=== PATIENT | female | born 1960 | race American Indian/Alaskan Native ===

== ENCOUNTER 2019-09-23 07:10 | Day surgery (SDC) | payer OTHER ==
[~2019-09-23] VITALS: Ht 162.6 cm; Wt 66.7 kg
--- NOTE | 2019-09-23 13:18 | OR ---
[facility] [address], [place] [address] Signed DATE OF OPERATION: 09/23/2019 SURGEON: Armida Rodriguez MD PREOPERATIVE DIAGNOSES: 1. Positive Cologuard test. 2. Family history of colon cancer (sister at 49). POSTOPERATIVE DIAGNOSIS: Polyps x4 including complex polyp at 60 cm. PROCEDURES: 1. Total colonoscopy to cecum with cold morcellation polypectomy x2. 2. Cold snare polypectomy x1. 3. Mucosal lift excision of complex polyp x1. ANESTHESIA: Intravenous sedation, fentanyl 200 mcg, Versed 8 mg. INDICATIONS: This 58-year-old dark-skinned woman is a patient of RASHMI Alarcon. The patient has family history of colon cancer in her sister, who at age 49 of the disease. The patient has no blood per rectum or other abdominal symptoms, but did undergo Cologuard test, which was positive. On that basis, colonoscopy has been recommended. The risks of bleeding, infection, and perforation related to colonoscopy was reviewed with her in detail. She understands and wished to proceed. FINDINGS: The prep was good. Complete colonoscopy was undertaken to the cecum without question. She did exhibit some tolerance to medications and in the future, a propofol infusional technique may be better. In any case, she had four polyps, 3 of them small and 1 of them larger at least 2 cm and sessile at 60 cm. All were excised with a variety of techniques. Most dominantly, the sessile polyp at 60 cm excised with mucosal lift technique using Spot tattoo dye and hemostasis also additionally secured with hemoclip. DESCRIPTION OF PROCEDURE: The patient was brought to the endoscopy suite and placed in lateral decubitus position given intravenous sedation to the point of slurred speech and nystagmus. Full cardiopulmonary monitoring was undertaken. Full COVID protections were in place, though the patient's showed no evidence of COVID infection. Digital rectal examination was Electronically Signed By: ARMIDA RORDIGUEZ MD 09/23/19 1318 PATIENT NAME: PEÑA CALDWELL OPERATIVE REPORT DATE OF : 64 REPORT #: [id number] PHYSICIAN: ARMIDA RODRIGUEZ MD PCP: NILO GORDILLO REPORT IS CONFIDENTIAL AND NOT TO BE RELEASED WITHOUT AUTHORIZATION [facility] [address], [place] [address] Signed normal. An Olympus video colonoscope was passed into the rectum and manipulated throughout the colon. Passage to the area of the splenic flexure was uncomfortable and additional sedation was given as needed. The scope was ultimately advanced to the cecum. The ileocecal valve and appendiceal orifice were normal. The scope was withdrawn and examination undertaken, showing a small polyp at the right transverse colon, which was excised with cold morcellation technique completely. Photographs were taken. The scope was further withdrawn and at approximately 60 cm in the left colon, rather subtle sessile polyp was noted, it measured about 2 cm in size. Given its configuration, mucosal lift technique was deemed most advisable using a sclerotherapy needle with spot tattoo dye, mucosal lift was undertaken. Then, with a hot snare technique, excision of the bulk of the polyp was undertaken. Good hemostasis was noted. The underlying submucosa was well stained. There remained some mucosal polyp, and therefore additional snare excisions were undertaken without cautery, excising completely the polypoid structure. A hemoclip was then applied to assure hemostasis. A basket was then used to gather the polypectomy specimen. This was withdrawn and examination along the way. Upon withdrawal of the scope, it showed possible other polyp. The polyp was offloaded. The scope reinserted and passed up to the polypectomy site, which at this point was about 70 cm and the scope once again withdrawn. Two additional polyps were seen, one small at about 40 cm and other a bit larger, definitely adenomatous at the rectosigmoid junction, this was excised with cold snare technique. Diverticula were also noted in the sigmoid. Retroflexed view showed no abnormality. The scope was removed. The patient was taken to the recovery room in good condition. CONCLUDING DIAGNOSIS: Polyps x4, completely excised. PLAN: Recommend repeat colonoscopy at one year to check the 60 cm site, likely best to use propofol sedation. She will return to the ongoing care of RASHMI Alarcon. Armida Rodriguez MD JM/MODL /[id number] Electronically Signed By: ARMIDA RODRIGUEZ MD 09/23/19 1318 PATIENT NAME: PEÑA CALDWELL OPERATIVE REPORT DATE OF : 64 REPORT #: [id number] PHYSICIAN: ARMIDA RODRIGUEZ MD PCP: NILO GORDILLO REPORT IS CONFIDENTIAL AND NOT TO BE RELEASED WITHOUT AUTHORIZATION [address] [address] Signed Copies: ~ Electronically Signed By: ARMIDA RODRIGUEZ MD 09/23/19 1318 PATIENT NAME: PEÑA CALDWELL OPERATIVE REPORT DATE OF : 64 REPORT #: [id number] PHYSICIAN: ARMIDA RODRIGUEZ MD PCP: NILO GORDILLO REPORT IS CONFIDENTIAL AND NOT TO BE RELEASED WITHOUT AUTHORIZATION
--- NOTE | 2019-09-25 08:20 | PATH ---
[facility] [address] [address] Signed SPECIMEN(S): A ASCENDING, TRANSVERSE POLYP SPECIMEN(S): B COLON POLYP AT 60 CM SPECIMEN(S): C COLON POLYP AT 40 CM SPECIMEN(S): D COLON POLYP AT 20 CM SPECIMEN SOURCE: A. ASCENDING, TRANSVERSE POLYP B. COLON POLYP AT 60 CM C. COLON POLYP AT 40 CM D. COLON POLYP AT 20 CM CLINICAL HISTORY: Preop: Positive Cologuard test, family history of colon CA. Postop: Polyps x 4 and diverticulosis. MICROSCOPIC DESCRIPTION: Histologic sections of all submitted blocks are examined by light microscopy. These findings, together with the gross examination, support the pathologic diagnosis. FINAL PATHOLOGIC DIAGNOSIS: A. Colon, right transverse, polyp, polypectomy: - Fragments of tubular adenoma. - Negative for high-grade dysplasia or malignancy. B. Colon, polyp at 60 cm, polypectomy: - Fragments of tubular adenoma. - Negative for high-grade dysplasia or malignancy. C. Colon, polyp at 40 cm, polypectomy: - Tubular adenoma. - Negative for high-grade dysplasia or malignancy. D. Colon, polyp at 20 cm, polypectomy: - Tubular adenoma. - Negative for high-grade dysplasia or malignancy. COMMENT: As part of [employer]' Quality Improvement Program, this case was reviewed by another member of our pathology staff. NAL:NRT:smn:C2NR GROSS DESCRIPTION: Four specimens are received in four containers, labeled "AC." A. The specimen, labeled "AC, 1," and designated on the requisition "ascending PATIENT NAME: PEÑA CALDWELL PATHOLOGY DATE OF : 64 REPORT #: [id number] PHYSICIAN: JANNETH WALKER PCP: NILO GORDILLO REPORT IS CONFIDENTIAL AND NOT TO BE RELEASED WITHOUT AUTHORIZATION [facility] [address], [place] [address] Signed (right), transverse," is received in formalin and consists of multiple tristan soft tissue fragments that measure 0.3 cm in greatest dimension. The specimen is entirely submitted in cassette (A1). B. The specimen, labeled "AC, 2," and designated on the requisition "colon polyp at 60 cm," is received in formalin and consists of three tristan-brown soft tissue polypoid fragments and clot material that measures 1.5 x 1.2 x 0.6 cm in aggregate. The largest polyp is inked black and trisected. The second largest polyp is inked blue and trisected. The specimen is entirely submitted in cassette (B1). C. The specimen, labeled "AC, 3," and designated on the requisition "colon polyp at 40 cm," is received in formalin and consists of a single tristan soft tissue polypoid fragment that measures 0.3 cm in greatest dimension. The specimen is entirely submitted in cassette (C1). D. The specimen, labeled "AC, 4," and designated on the requisition "colon polyp at 20 cm," is received in formalin and consists of a single tristan soft tissue polypoid fragment that measures 0.5 cm in greatest dimension. The specimen is entirely submitted in cassette (D1). AT (under the direct supervision of a pathologist) The Gross Description was prepared using a voice recognition system. The report was reviewed for accuracy; however, sound-alike word errors, addition and/or deletions may occur. If there is any question about this report, please contact Client Services. PERFORMING LABORATORY: The technical component was performed by [employer], [address] [place] [id number] ([employer]: Rosalba Gibson MD; CLIA# [id number]). Professional interpretation was performed by [employer], [facility], [address] [place] [address] (CLIA# [id number]). Diagnostician: Lora Escobar MD Pathologist Electronically Signed 09/25/2019 Copies: ~ PATIENT NAME: PEÑA CALDWELL PATHOLOGY DATE OF : 64 REPORT #: [id number] PHYSICIAN: JANNETH WALKER PCP: NILO GORDILLO REPORT IS CONFIDENTIAL AND NOT TO BE RELEASED WITHOUT AUTHORIZATION
== END 2019-09-23 10:35 | disposition home or self-care (01) ==
LOC: DS 07:10 → OPS 07:10 → DS 08:30 → OPS 10:35
PROVIDERS: Surgery
PROC: 0DBE8ZZ Excision of Large Intestine, Via Natural or Artificial Opening Endoscopic (ICD-10-PCS; 2019-09-23)
PROC: 3E0H8GC Introduction of Other Therapeutic Substance into Lower GI, Via Natural or Artificial Opening Endoscopic (ICD-10-PCS; 2019-09-23)
PROC: 0DBL8ZZ Excision of Transverse Colon, Via Natural or Artificial Opening Endoscopic (ICD-10-PCS; principal; 2019-09-23 08:30)
DX: D12.3 Benign neoplasm of transverse colon (principal); F17.210 Nicotine dependence, cigarettes, uncomplicated; Z80.0 Family history of malignant neoplasm of digestive organs; Z88.0 Allergy status to penicillin; Z88.6 Allergy status to analgesic agent; Z91.038 Other insect allergy status; Z79.899 Other long term (current) drug therapy
CPT/HCPCS: 99153; G0500; J2250; J3010; J7121

== ENCOUNTER 2020-09-02 13:22 | Emergency (ER) | payer OTHER ==
[~2020-09-02] VITALS: Ht 162.6 cm; Wt 66.7 kg
--- NOTE | 2020-09-03 12:45 | EKG ---
[facility] [address] [facility] [place], [place] [address] Signed Normal sinus rhythm Normal ECG No previous ECGs available Confirmed by TERRY ENNIS DO ([id number]) on 09/03/2020 12:45:32 PM Electronically Signed By: TERRY ENNIS DO 09/03/20 1245 PATIENT NAME: PEÑA CALDWELL Electrocardiogram DATE OF : 64 PHYSICIAN: TERRY ENNIS DO REPORT #: [id number] REPORT IS CONFIDENTIAL AND NOT TO BE RELEASED WITHOUT AUTHORIZATION
== END 2020-09-02 16:40 | disposition home or self-care (01) ==
LOC: ED 13:22
DX: R07.89 Other chest pain (principal); Z87.891 Personal history of nicotine dependence; Z88.0 Allergy status to penicillin; Z88.8 Allergy status to other drugs, medicaments and biological substances; Z91.030 Bee allergy status
CPT/HCPCS: 71045; 80053; 83735; 84484; 85025; 85379; 85610; 93005; 93010; 99285-25

== ENCOUNTER 2021-08-09 14:06 | Emergency (ER) | payer OTHER ==
[~2021-08-09] VITALS: Ht 162.6 cm; Wt 66.7 kg
--- OUTSIDE RECORDS SUMMARY | 2021-08-09 14:10 | XMS ---
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 Maddy has no Care Guidelines for this patient. Harshad VISIT COUNT (12 MO.) 2 ASIA Cummings TOTAL 2 NOTE: Visits indicate total known visits. ED/C VISIT TRACKING (12 MO.) 08/09/2021 14:07 [facility]ain OR TYPE: Emergency COMPLAINT: - R KNEE INJURY 09/02/2020 13:23 [facility] [place] TYPE: Emergency COMPLAINT: - CHEST PAIN DIAGNOSES: - Allergy status to penicillin - Bee allergy status - Other chest pain - Allergy status to other drugs, medicaments and biological substances - Chest pain, unspecified - Personal history of nicotine dependence INPATIENT VISIT TRACKING (12 MO.) No inpatient visits to display in this time frame [email or web address]
[2021-08-09] MEDS ORDERED: ALEVE220 MG PO (14:38)
[2021-08-09] MEDS ORDERED: HYDROCODON-ACE1 EA10 PO (15:18)
== END 2021-08-09 15:40 | disposition home or self-care (01) ==
LOC: ED 14:06
DX: S83.91XA Sprain of unspecified site of right knee, initial encounter (principal); Z87.891 Personal history of nicotine dependence; Z88.5 Allergy status to narcotic agent; Z88.0 Allergy status to penicillin; Z88.6 Allergy status to analgesic agent; Z91.030 Bee allergy status; Z79.899 Other long term (current) drug therapy; W18.40XA Slipping, tripping and stumbling without falling, unspecified, initial encounter
CPT/HCPCS: 73560; 99283-25

== ENCOUNTER 2022-05-11 10:50 | Emergency (ER) | payer OTHER ==
[~2022-05-11] VITALS: Ht 162.6 cm; Wt 66.7 kg
[~2022-05-11 10:50] MED LIST: ALEVE220 MG PO; HYDROCODON-ACE1 EA10 PO
--- OUTSIDE RECORDS SUMMARY | 2022-05-11 10:54 | XMS ---
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 Care History Medical/Surgical 08/10/2021 [facility] does not have current phone numbers of this patient nor an employer listed. I left voicemail via the phone number given to ER. Last seen in Clinic by Tricia Alonzo on 09/06/2020 08/10/2021 [facility] - Patient is currently established with [facility]. If patient is seen in the ED during business hours. Please contact CHWs at [facility]. Care Recommendation: If this patient has had 5 or more Emergency Department visits in the last 12 months.\T\nbsp;Patient will require education on the scope and purpose of the ED as an acute care provider not a Primary Care Provider and should not be utilized for chronic conditions.\T\nbsp; These are guidelines and the provider should exercise clinical judgment when providing care. E.D. VISIT COUNT (12 MO.) [address] [facility] [address] [facility] TOTAL 2 NOTE: Visits indicate total known visits. 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
[2022-05-11] MEDS ORDERED: BENZONATATE100 MG PO (13:09)
[2022-05-11] MEDS ORDERED: VENTOLIN HFA18 GM INH (14:57)
[2022-05-11] MEDS ORDERED: ONDANSETRON ODT4 MG PO (14:57)
[2022-05-11] MEDS ORDERED: DOXYCYCLINE HY100 MG PO (14:57)
[2022-05-11] MEDS ORDERED: PREDNISONE20 MG PO (14:57)
== END 2022-05-11 15:14 | disposition home or self-care (01) ==
LOC: ED 10:50
DX: J44.9 Chronic obstructive pulmonary disease, unspecified (principal); Z87.891 Personal history of nicotine dependence; Z88.5 Allergy status to narcotic agent; Z88.0 Allergy status to penicillin; Z88.8 Allergy status to other drugs, medicaments and biological substances; Z79.899 Other long term (current) drug therapy
CPT/HCPCS: 74022; 99283-25

== ENCOUNTER 2023-03-07 11:23 | Observation (INO) | payer OTHER ==
[~2023-03-07] VITALS: Ht 162.6 cm; Wt 63.5 kg
[~2023-03-07 11:23] MED LIST changes: +BENZONATATE100 MG PO; +DOXYCYCLINE HY100 MG PO; +ONDANSETRON ODT4 MG PO; +PREDNISONE20 MG PO; +VENTOLIN HFA18 GM INH
[2023-03-07 13:07] LABS: BILIRUBIN, URINE NEGATIVE (negative); BLOOD/HGB, URINE NEGATIVE (Negative); KETONE, URINE NEGATIVE (Negative); LEUK ESTERASE, URINE NEGATIVE (negative); NITRITE, URINE NEGATIVE (negative)
[2023-03-07 13:09] LABS: BASOPHILS 0.8 % (0-2); EOSINOPHILS 1.5 % (0-6); HEMATOCRIT 44.7 % (35.0-50.0); HEMOGLOBIN 14.6 g/dL (12.0-18.0); LYMPHOCYTES 16.5 % (24-44); MCH 30.3 (27-36); MCHC 32.7 g/dl (30-36); MCV 92.6 fl (81-99); MONOCYTES 4.1 % (0-12); NEUTROPHILS 77.1 % (39-80); PLATELET COUNT 372 K/uL (140-440); RBC 4.82 M/ul (4.3-5.7); RDW 14.3 (10.5-15.0)
[2023-03-07 13:25] LABS: ALBUMIN 3.6 g/dL (3.4-5.0); ALBUMIN/GLOBULIN RATIO 0.68 (1.1-2.4); ANION GAP 13.9 (7-21); BILIRUBIN, TOTAL 0.3 ng/dL (0.2-1.0); BUN/CREATININE RATIO 22.05 (6.0-28.6); CALCIUM 9.1 mg/dL (8.5-10.1); CREATININE, SERUM 0.68 mg/dL (0.55-1.02); POTASSIUM 3.9 mmol/L (3.5-5.1); PROTEIN, TOTAL 8.9 g/dL (6.4-8.2)
[2023-03-07 14:54] LABS: INFLUENZA B NAA NEGATIVE (NEGATIVE); RESPIRATORY SYNCYTIAL VIR NAA NEGATIVE (NEGATIVE)
[2023-03-07 14:57] VITALS: BP 167/75
--- NOTE | 2023-03-07 15:07 | NUR ---
REPORT RECEIVED FROM DARNELL GUIDRY. PT TRANSFERED TO MED/SURG BY WHEELCHAIR BY THIS RN. PT REQUESTS TO GET UP TO RESTROOM PRIOR TO TRANSFER. STAND BY ASSIST UP TO RESTROOM. PT VOIDS WITH OUT ISSUE. CHIVO CARE PER PT. PT REPROTS 8/10 PAIN IN RIGHT UPPER QUADRANT. PT REPORTS "I HAVE A REALLY HIGH PAIN TOLERANCE." PT STATES SHE WOULD LIKE MEDICAITON FOR PAIN OVER A 7. SEE MAR FOR MEDICATION GIVEN. PT ALERT AND ORINETED TO ALL AND INTERACTING APPROPRIATLY. BMAT LEVEL 4, PT STEADY ON FEET, INDEPENDANT IN ROOM. LUNG SOUNDS CLEAR. HEART TONES REGULAR. PT REPORTS RECENT COUGH "BECAUSE OF THE WEATHER." WITH CLEAR THIN SPUTUM. HEART TONES REGULAR. PT REPORTS NUMBNESS IN FEET THAT STARTED "WHEN I BOUGHT A NEW PAIR OF SHOES" ABOUT A MONTH AGO. PT ALSO STATES "IT'S PROBABLY BECUASE OF MY BAD KNEE. ABDOMEN SOFT BUT TENDER TO RIGHT UPPER QUADRANT. PT REPORTS MILD ABDOMINAL DISTENTION. ABDOMEN APPEARS NORMAL. PT ATTRIBUTES DISTENTION TO "GAS." PT DENIES NAUSEA AT THIS TIME. PT NPO A THIS TIME. PT REPORTS DIARRHEA X 2 WEEKS WITH ~2-3/BOWEL MOVEMENTS PER DAY. PT ALSO REPORTS NASUEA WITH EMESIS, LAST EMESIS THIS MORNING. IV FLUIDS STARTED. PT ORIENTED TO ROOM AND USE OF CALL LIGHT. NO ADDITIONAL REQUESTS OR COMPLAINTS. CALL LIGHT WITHIN REACH. BED RAILS UP.
--- NOTE | 2023-03-07 15:53 | NUR ---
HOURLY ROUNDING. PT ADMITTED TO MEDSURG UNIT. PT STATES NO FURTHER NEEDS AT THIS TIME. CALL LIGHT WITHIN REACH. BED RAILS UP.
--- NOTE | 2023-03-07 16:24 | NUR ---
PT ADMITTED THIS SHIFT FOR CHOLECYSTITIS, ANTICIPATING SURGERY. PT INDEPENDENT IN ROOM, STEADY ON FEET. NPO SO FAR THIS SHIFT. PT A+O TO ALL. REPORTS RUQ PAIN, PRN PAIN MEDICINE GIVEN. REPORTS N/V/D AT HOME, NONE SEEN SO FAR THIS SHIFT. PT REPORTS NAUSEA REMAINS WELL CONTROLLED SINCE MEDICATION GIVEN IN ER. PT HARD OF HEARING BUT INTERACTS APPROPRIATELY. IV ANTIVIOTICS GIVEN. PT VOIDING QUANTITY SUFFICIENT. PT USES CALL LIGHT AND MAKES NEEDS KNOWN.
--- NOTE | 2023-03-07 16:42 | NUR ---
HOURLY ROUNDING. PT RESTING IN BED WITH EYES CLOSED, RR 18 EVEN AND UNLABORED BREATHING. CALL LIGHT WITHIN REACH. BED RAILS UP.
[2023-03-07 17:05] VITALS: BP 136/70
--- NOTE | 2023-03-07 17:34 | NUR ---
HOURLY ROUNDING. PT RESTING WITH EYES CLOSED. RR 16 EVEN AND UNLABORED. CALL LIGHT WITHIN REACH. BED RAILS UP.
--- NOTE | 2023-03-07 17:36 | NUR ---
DR RODRIGUEZ TO BEDSIDE TO ROUND ON PT. PLAN OF CARE REVIEWED WITH PT. PT VERBALIZES UNDERSTANDING AND STATES HER QUESTIONS HAVE BEEN ANSWERED. STATES OK FOR PT TO HAVE CLEAR LIQUIDS TONIGHT. DIET ORDER CHANGED, REPEAT BACK PERFORMED. PT ANTICIPATING SURGERY TOMORROW. CLEAR LIQUIDS PROVIDED FOR PT. PT GREAFUL FOR CARES. PT UP TO RESTROOM WITH STAND BY ASSIST TO VOID. PT VOIDS WITHOUT ISSUE. CHIVO CARE PER PT. PT REPORTS 6/10 PAIN THAT SHE REPORTS IS TOELRATBLE. PT DENIES ADDITIONAL REQUESTS OR COMPLAINTS. CALL LIGHT WITHIN REACH. BED RAILS UP.
--- NOTE | 2023-03-07 18:00 | NUR ---
THIS RN TO ROOM TO CHECK ON PT. NEW ORDERS PLACED. PT HAS FRIEND, GARRISON, AT BEDSIDE, PT VISITING WITH FRIEND. DR RODRIGUEZ'S GALLBLADDER BOOKLET PROVIDED TO PT. IV FLUID RATE CHANGED TO 100ML/HR PER MD ORDER. NO ADDITONAL REQUESTS OR COMPLAINTS. CALL LIGHT WITHIN REACH. BED RAILS UP.
--- NOTE | 2023-03-07 20:53 | NUR ---
report provided by dedrick @ 1228. patient in bed visiting with yari, denies need for medication for discomfort or nausea. call light in reach. no complaints,
[2023-03-07 20:55] VITALS: BP 157/65
--- NOTE | 2023-03-07 22:29 | EKG ---
[facility] [address] [place] [address] Signed Sinus bradycardia with premature atrial complexes Otherwise normal ECG When compared with ECG of 02-SEP-2020 13:34, premature atrial complexes are now present Confirmed by Hakan Webber MD () on 03/07/2023 10:28:54 PM Electronically Signed By: HAKAN WEBBER MD 03/07/23 2229 PATIENT NAME: PEÑA CALDWELL Electrocardiogram DATE OF : 64 PHYSICIAN: HAKAN WEBBER MD REPORT #: [id number] REPORT IS CONFIDENTIAL AND NOT TO BE RELEASED WITHOUT AUTHORIZATION
--- NOTE | 2023-03-07 22:48 | NUR ---
Patient resting in bed with eyes closed, no distress noted, lights are out, call light in reach.
[2023-03-08] VITALS (8 sets, daily range): BP systolic 101–168; BP diastolic 56–88
--- NOTE | 2023-03-08 01:30 | NUR ---
PATIENT UP TO BR INDEPENDENTLY WITHOUT DIFFICULTY, VOIDING QS. VSS, DENIES NEED FOR PAIN MED, DENIES NAUSEA, RETURN BACK TO BED TO SLEEP, CALL LIGHT IN REACH.
--- NOTE | 2023-03-08 04:18 | NUR ---
rounding on patient. eyes closed, no distress, appears comfortable, lights out, call light in reach. patient remains NPO since MN for planned am surgery.
--- NOTE | 2023-03-08 05:57 | NUR ---
Patient has had an uneventful night. Slept well and is awake now watching TV, No complaints, Has required no pain medication, Denies nausea, VSS, up ad mohamud to BR and voiding QS. Given Gallbladder pre surgical handout and has read over it twice. Remains NPO, call light in reach.
[2023-03-08 06:03] LABS: BASOPHILS 1.2 % (0-2); EOSINOPHILS 3.2 % (0-6); HEMATOCRIT 41.1 % (35.0-50.0); HEMOGLOBIN 13.5 g/dL (12.0-18.0); MCH 30.4 (27-36); MCHC 32.9 g/dl (30-36); MCV 92.6 fl (81-99); MONOCYTES 5.5 % (0-12); NEUTROPHILS 45.1 % (39-80); PLATELET COUNT 309 K/uL (140-440); RBC 4.43 M/ul (4.3-5.7); RDW 14.3 (10.5-15.0)
[2023-03-08 06:25] LABS: ALBUMIN 2.8 g/dL (3.4-5.0); ALBUMIN/GLOBULIN RATIO 0.6 (1.1-2.4); ANION GAP 11.1 (7-21); BILIRUBIN, TOTAL 0.3 ng/dL (0.2-1.0); BUN/CREATININE RATIO 13.04 (6.0-28.6); CALCIUM 8.5 mg/dL (8.5-10.1); CREATININE, SERUM 0.69 mg/dL (0.55-1.02); POTASSIUM 4.1 mmol/L (3.5-5.1); PROTEIN, TOTAL 7.5 g/dL (6.4-8.2)
--- NOTE | 2023-03-08 07:10 | NUR ---
PT REPORT RECEIVED FROM DARNELL TS. PT IS SUPINE IN BED, AWAKE, ASKING WHEN HER SURGERY WILL BE BECAUSE SHE'S "STARVING". PT IS PLEASANT, A&O X4. DENIES NEEDS (OTHER THAN A STEAK AND EGGS) AT THIS TIME. CALL LIGHT IN REACH.
--- NOTE | 2023-03-08 09:45 | NUR ---
Spoke with Eva. She is a TF for surgery today. States she is dying of thirst and hunger. She lives in a [place] with a friend. No issues getting in or out. States she works and is very active. She does not use any DME and plans on dc to home as soon as she can following surgery. No needs. Hopefully she will go to surgery early afternoon today.
--- NOTE | 2023-03-08 10:00 | NUR ---
PT IS AWAKE, A&O, STATES SHE IS HUNGRY. REPORTS PAIN 7 OUT OF 10 IN HER MID UPPER BACK AND RIGHT FLANK. STATES SHE HAS TRIED REPOSITIONING HERSELF. WHEN ASKED PT STATED SHE WOULD LIKE TO TRY SOME PAIN MEDS AND A HOT PACK. HOT PACK PROVIDED TO PT AND PLACED IN AFFECTED AREA WITH IMMEDIATELY SATISFACTION STATED FROM PT. PT MEDICATED WITH 2MG MSO4 FOR PAIN. CALL LIGHT IN REACH.
--- NOTE | 2023-03-08 11:08 | NUR ---
PT RESTING IN BED WATCHING TV - RATES PAIN 3/10 WITH MORPHINE AND HEAT PACK APPLIED. DENIES NAUSEA AND LOOSE STOOL. IV SITE PATENT, WITH LR INFUSING. DENIES FURTHER NEEDS. CALL LIGHT IN REACH.
--- NOTE | 2023-03-08 11:38 | NUR ---
MED REC COMPLETE
--- NOTE | 2023-03-08 15:25 | NUR ---
PT RESTING IN BED VISITING WITH VISITOR. CALL LIGHT IN REACH.
--- NOTE | 2023-03-08 15:59 | NUR ---
PT OFF FLOOR TO OR
[2023-03-08] MEDS ORDERED: TYLENOL EXTRA500 MG PO (17:59)
[2023-03-08] MEDS ORDERED: MOTRIN IB200 MG PO (17:59)
[2023-03-08] MEDS ORDERED: HYDROCODON-ACE1 EA10 PO (18:00)
--- NOTE | 2023-03-08 18:00 | NUR ---
03/08/23 1800 Lisbet Curry 2526 PATIENT INTO PACU BAY 5. REPORT RECIEVED FROM AVIS ARRIETA. PATIENT NONREACTIVE. PATIENT HAS ORAL AIRWAY IN. 6 LITERS OF OXYGEN VIA MASK. OXYGEN SATURATIONS ABOVE 90%. BREATHING EQUAL AND UNLABORED. SR ON TELE. SURGICAL SITE HAS SMALL AMOUNT OF RED SHADOWING. SCD'S ON. IVF INFUSING.
--- NOTE | 2023-03-08 18:11 | NUR ---
PT BACK TO ROOM FROM SURGERY. AWAKE AND ALERT, VSS. CPOX PLACED. PT ASSISTED STANDBY ASSIST TO COMMODE, 600ML CLEAR YELLOW URINE NOTED. 4 LAP SITES WITH STERI STRIPS, CDI. PT DENIES PAIN OR NAUSEA AT THIS TIME. CALL LIGHT IN REACH.
--- NOTE | 2023-03-08 20:15 | NUR ---
Bedside Report procided by day shift RN. Patient with no complaints, no distress noted, resting with eyes closed, call light in reach.
--- NOTE | 2023-03-08 21:15 | NUR ---
IN TO GET VS, PT ASSISTED TO THE BSC TO VOID, BACK TO BED, SCDS IN PLACE
--- NOTE | 2023-03-08 21:42 | NUR ---
Patient has gautam resting, no nausea, post op vitals have been stable, abominal punture sites intact with steri strips, no drainage, active BT's, tolerating fluids, has been up to BR x2 with SBA. Having c/o abdominal discomfort and medicated x1 with oral pain med. Patient now resting with eyes closed, lights out and call light in reach.
--- NOTE | 2023-03-08 23:04 | NUR ---
Patient is resting comfortable in bed with eyes closed, no distress, call light within reach.
--- NOTE | 2023-03-08 23:50 | NUR ---
Patient assisted up to BR with SBA. tolerated well. HOB up and eating crackers now, no complaints, assessment without change. call light in reach. continus pulse ox on, SCD's on.
[2023-03-09 02:15] VITALS: BP 114/60
--- NOTE | 2023-03-09 02:16 | NUR ---
Patient awake, has a achy lower back and given a warm compress for it. patient stated it helped. VSS, abdominal assessment without change. Patient has had some crackers, sameer kirsten and pudding tonight and tolerated without difficulties. denies nausea. IV fluids complete and patient is now saline locked. call light in reach.
[2023-03-09 05:16] LABS: BASOPHILS 0.2 % (0-2); EOSINOPHILS 0.1 % (0-6); HEMATOCRIT 40.1 % (35.0-50.0); HEMOGLOBIN 13.1 g/dL (12.0-18.0); LYMPHOCYTES 16.1 % (24-44); MCH 30.4 (27-36); MCHC 32.8 g/dl (30-36); MCV 92.8 fl (81-99); MONOCYTES 4.2 % (0-12); NEUTROPHILS 79.4 % (39-80); PLATELET COUNT 297 K/uL (140-440); RBC 4.33 M/ul (4.3-5.7); RDW 14.4 (10.5-15.0)
[2023-03-09 05:24] VITALS: BP 117/58
--- NOTE | 2023-03-09 05:28 | NUR ---
Patient awake watching TV, up with SBA to BR, voiding QS, VSS, Abdominal puncture sites intact with site strips, patient has tolerated food and soda to drink during the night. no c/o nausea, call light in reach.
[2023-03-09 05:30] LABS: ALBUMIN 2.9 g/dL (3.4-5.0); ALBUMIN/GLOBULIN RATIO 0.6 (1.1-2.4); ANION GAP 13.5 (7-21); BILIRUBIN, TOTAL 0.3 ng/dL (0.2-1.0); BUN/CREATININE RATIO 18.3 (6.0-28.6); CALCIUM 8.8 mg/dL (8.5-10.1); CREATININE, SERUM 0.71 mg/dL (0.55-1.02); POTASSIUM 4.5 mmol/L (3.5-5.1); PROTEIN, TOTAL 7.7 g/dL (6.4-8.2)
--- NOTE | 2023-03-09 07:31 | NUR ---
REPORT RECEIVED FROM NIGHT RN - PT RESTING IN BED, NO COMPLICATIONS OVERNIGHT, MEETS CRITERIA FOR DC HOME PER ORDERS WRITTENT POST SURGERY LAST NIGHT.
[2023-03-09] MEDS ORDERED: ALEVE220 M1 PO (08:22)
[2023-03-09] MEDS ORDERED: COLACE100 MG PO (08:22)
--- NOTE | 2023-03-09 08:34 | NUR ---
PT SITTING UP IN BED EATING BREAKFAST WITHOUT NAUSEA. LAP SITES X4 WITH STERISTRIPS IN PLACE WITHOUT NEW BLEEDING OR BRUISING. PRN PAIN MEDICATION ADMINISTERED FOR 8/10 ABD PAIN. PT PASSING GAS AND URINATING WITHOUT DIFFICULTY.
[2023-03-09] MEDS ORDERED: MILK OF MA400 MG/5 M PO (08:50)
[2023-03-09 09:02] VITALS: BP 139/69
--- NOTE | 2023-03-09 19:34 | HP ---
[facility] [address], [place] [address] Signed ADMISSION DATE: 03/07/2023 REASON FOR ADMISSION: Acute calculous cholecystitis. HISTORY OF PRESENT ILLNESS: This 62-year-old dark-skinned woman is known to me from the past having undergone colonoscopy. For the past week, she has been having increasing abdominal pain and a feeling of "gas." In the past three days, she has had postprandial vomiting combined with right subcostal and mid epigastric pain. She presents to the emergency room, where she was thoroughly evaluated by Dr. Morales. Evaluation included a gallbladder ultrasound showing gallstone within the neck of the gallbladder and gallbladder wall thickening, pericholecystic fluid and positive Shoemaker sign. There is a 9 mm left lobar probable hemangioma noted as well. The patient is generally in good health. PAST MEDICAL HISTORY: She does include colonoscopy with polypectomy in September of 2019. There were no ongoing chronic medical problems. PAST SURGICAL HISTORY: Includes total knee replacement on the right side, history of appendectomy and bilateral tubal ligation. She does have allergies to codeine, penicillin, and ibuprofen. She currently takes albuterol for "shortness of breath." SOCIAL HISTORY: She lives with daughter. REVIEW OF SYSTEMS: She denies any shortness of breath or chest pain. She has had no dysphagia or dysuria. She does have right subcostal pain, which is significant. She did have nausea and vomiting, none since admission. PHYSICAL EXAMINATION: GENERAL: This is a pleasant dark-skinned woman, who does not look systemically toxic at this time. VITAL SIGNS: Temperature is 98, pulse 68, blood pressure 136/70, and O2 saturation on room air is 97%. NECK: Trachea is midline. CHEST: Shows normal respiratory excursion. Pulse is regular. Electronically Signed By: ARMIDA RODRIGUEZ MD 03/09/23 193 PATIENT NAME: PEÑA CALDWELL HISTORY AND PHYSICAL DATE OF : 64 REPORT #: [id number] PHYSICIAN: ARMIDA RODRIGUEZ MD PCP: NILO GORDILLO NP REPORT IS CONFIDENTIAL AND NOT TO BE RELEASED WITHOUT AUTHORIZATION [facility] [address], [place] [address] Signed ABDOMEN: Nondistended. There is marked tenderness in right subcostal area. There is no mass. I see no ascites. EXTREMITIES: Show no clubbing, cyanosis, or edema. IMAGING DATA: Abdominal ultrasound images were reviewed as was the report associated with it. I see only visualization of the pancreas and other images are not currently available to me for review. There does appear to be a gallstone within the gallbladder. ASSESSMENT: The patient has acute calculous cholecystitis with marked tenderness, but without systemic toxicity. I discussed with her in the presence of the nurse (Sammie), the pathophysiology of biliary disease and recommendation of treatment to include cholecystectomy preferred by laparoscopic approach. The risk of bleeding, infection, need for open procedure, common duct exploration either laparoscopic or open were all reviewed in detail. She understands and wished to proceed. PLAN: We will continue with her ongoing fluid resuscitation. She does have clinical dehydration currently anticipating operation tomorrow. MD LISETH Resendiz/CLARENCE /[id number] cc: RASHMI Hammer Electronically Signed By: ARMIDA RODRIGUEZ MD 03/09/23 1934 PATIENT NAME: JAVI,PEÑA HISTORY AND PHYSICAL DATE OF : 64 REPORT #: [id number] PHYSICIAN: ARMIDA RODRIGUEZ MD PCP: NILO GORDILLO MECHANICAL DETAILER REPORT IS CONFIDENTIAL AND NOT TO BE RELEASED WITHOUT AUTHORIZATION [address] [address] Signed Copies: LINETTE MORALES ~ Electronically Signed By: ARMIDA RODRIGUEZ MD 03/09/23 1934 PATIENT NAME: JAVI,PEÑA HISTORY AND PHYSICAL DATE OF : 64 REPORT #: [id number] PHYSICIAN: ARMIDA RODRIGUEZ MD PCP: NILO GORDILLO NP REPORT IS CONFIDENTIAL AND NOT TO BE RELEASED WITHOUT AUTHORIZATION
--- NOTE | 2023-03-09 19:34 | OR ---
[facility] [address], [place] [address] Signed DATE OF OPERATION: 03/08/2023 SURGEON: Armida Rodriguez MD PREOPERATIVE DIAGNOSIS: Acute calculous cholecystitis. POSTOPERATIVE DIAGNOSES: 1. Acute calculous cholecystitis. 2. Extensive hepatic capsular adhesions. PROCEDURES: 1. Laparoscopic evaluation and laparoscopic lysis of adhesions of capsular liver. 2. Laparoscopic cholecystectomy with intraoperative cholangiogram. 3. Surgeon-directed fluoroscopy. ANESTHESIA: General endotracheal, Hank Holt, [employer]NAGER and local 10 mL of 0.25% Marcaine with epinephrine. INDICATIONS: This 62-year-old woman presented to the emergency room and evaluated by Dr. Alexis Morales yesterday and found to have severe tenderness and complaints of pain in the right upper quadrant. Evaluation included a gallbladder ultrasound showing gallstones and thickened gallbladder wall. She has been fluid resuscitated given intravenous antibiotics and parental pain medication, is now to undergo cholecystectomy preferred by laparoscopic approach. The risk of bleeding, infection, bile duct injury, need for open procedure, and other unforeseen complications was reviewed in detail with her. She understands and wished to proceed. FINDINGS: Indeed the gallbladder was quite markedly inflamed and dense adhesions to its surface was noted. Additionally, she had extensive capsular adhesions of the liver. Lysis of adhesions was required for exposure as well as to remedy the capsule adhesions of the liver. The operation would be considered prolonged, complicated, and difficult on that basis. The gallbladder once excised showed three 2 cm gallstones. An intraoperative cholangiogram was normal. There was no evidence of malignancy of the mucosa of the gallbladder. Electronically Signed By: ARMIDA RODRIGUEZ MD 03/09/231933 PATIENT NAME: PEÑA CALDWELL OPERATIVE REPORT DATE OF : 64 REPORT #: [id number] PHYSICIAN: ARMIDA RODRIGUEZ MD PCP: NILO GORDILLO NP REPORT IS CONFIDENTIAL AND NOT TO BE RELEASED WITHOUT AUTHORIZATION [facility] [address], [place] [address] Signed DESCRIPTION OF PROCEDURE: The patient was brought to the operating room, given a general endotracheal anesthetic. Preoperative antibiotic Ancef had been ongoing. Her last dose was noted. After satisfactory general endotracheal anesthesia, the abdomen was prepared with a chlorhexidine solution and draped sterilely. An infraumbilical incision was made and using an open Suzette cannula technique, pneumoperitoneum achieved to a level of 14 mmHg of carbon dioxide gas. Intra-abdominal inspection showed no sign of ascites or carcinomatosis. Notable; however, were extensive adhesions of the omentum to the mid abdomen for reasons that are unclear. Passage of the scope beyond this to evaluate the upper abdomen did confirm extensive adhesions of the capsule of the liver to the diaphragm. A 12 mm epigastric port was placed and under direct visualization, lysis of adhesions of the capsule of the liver were undertaken. Two additional trocars were placed in the right midclavicular, and right anterior axillary line. The gallbladder was grasped and elevated cephalad. Dense adhesions of omentum to the gallbladder were noted and these were taken down with meticulous care using blunt and electrocautery dissection. Ultimately, the gallbladder was able to be elevated more cephalad. The infundibulum was grasped and using blunt electrocautery dissection, the triangle of Calot was dissected free. Extensive adhesions were noted there as well, edema was considerable. Two individual cystic arterial branches were identified, both of them were clipped and subsequently divided. Ultimately, the cystic duct was well identified and critical view of safety maintained. The clip was applied across gallbladder cystic duct junction and a transverse choledochotomy made and the cystic duct, which was moderate in size. Egress of clear bile and a bit of grainy debris was noted. Using the Solorzano type cholangiocatheter, intraoperative cholangiography was undertaken showing free flow of contrast in biliary tree with prompt emptying into the duodenum. Retrograde filling was not forthcoming and therefore 4 mg of morphine were given intravenously and after about 2 minutes await time, repeat cholangiogram undertaken showing retrograde filling of the common hepatic duct and biliary radicles showing no sign of anomaly or filling defect. The catheter was removed. The cystic duct was triply clipped and divided. The gallbladder was dissected free in a retrograde fashion using electrocautery. Gallbladder was placed in an Endobag. Additional adhesions were required for lysis in the mid abdomen to allow for extraction of the gallbladder through the infraumbilical port site, it was accomplished without problem ultimately. The gallbladder was opened on the back table by the circulating nurse and found to have moderately large gallstones about 2 cm in size each, as well as chronic and acute inflammation of mucosa, but no sign of neoplasm. Irrigation was undertaken in subhepatic space. There was no sign of bile leak, bleeding, or other problems. The trocars removed under direct visualization showing no sign of bleeding. The infraumbilical fascial incision was reapproximated with interrupted 0-Vicryl suture. A 10 mL of 0.25% Marcaine with epinephrine was injected locally. The skin was closed Electronically Signed By: ARMIDA RODRIGUEZ MD 03/09/23 1934 PATIENT NAME: PEÑA CALDWELL OPERATIVE REPORT DATE OF : 64 REPORT #: [id number] PHYSICIAN: ARMIDA RODRIGUEZ MD PCP: NILO GORDILLO NP REPORT IS CONFIDENTIAL AND NOT TO BE RELEASED WITHOUT AUTHORIZATION [facility] [address] [place] [address] Signed with interrupted 3-0 Vicryl. Steri-Strips were applied. The patient was ultimately extubated and transferred to the recovery room in good condition, having suffered no complications. Sponge, needle, and instrument counts reported as correct x3. MD LISETH Resendiz/CLARENCE /[id number] cc: NADYA Alarcon Copies: ALEXIS MORALES ~ Electronically Signed By: ARMIDA RODRIGUEZ MD 03/09/23 1934 PATIENT NAME: PEÑA CALDWELL OPERATIVE REPORT DATE OF : 64 REPORT #: [id number] PHYSICIAN: ARMIDA RODRIGUEZ MD PCP: NILO GORDILLO NP REPORT IS CONFIDENTIAL AND NOT TO BE RELEASED WITHOUT AUTHORIZATION
--- NOTE | 2023-03-14 15:58 | PATH ---
[facility] [address] [facility] [place], [place] [address] Signed SPECIMEN(S): A GALLBLADDER AND STONES SPECIMEN SOURCE: A. GALLBLADDER AND STONES CLINICAL HISTORY: Cholelithiasis. FINAL PATHOLOGIC DIAGNOSIS: Gallbladder and stones: - Chronic calculous cholecystitis. JVR:natalee MICROSCOPIC EXAMINATION: Histologic sections of all submitted blocks are examined by light microscopy. These findings, together with the gross examination, support the pathologic diagnosis. GROSS DESCRIPTION: The specimen, labeled and designated "Cupples, A" and designated on the requisition "gallbladder and stones," is received in formalin and consists of Specimen: Disrupted gallbladder. Dimensions: 6.7 x 3.5 x 2.0 cm. Serosa: Green-tristan smooth. Cystic Duct: Unobstructed. Calculi: One orange brown irregularly-shaped calculi (1.2 to 1.4 cm in greatest dimension). Mucosa: Green-tristan velvety. Wall thickness: 0.4 cm. Lymph node: No pericystic lymph nodes are grossly identified. Additional: None. Die Maker Trim sections are submitted in (A1). AC (under the direct supervision of a pathologist) The Gross Description was prepared using a voice recognition system. The report was reviewed for accuracy; however, sound-alike word errors, addition and/or deletions may occur. If there is any question about this report, please contact Client Services. PERFORMING LABORATORY: Technical component was performed by [employer], [address] [place] [id number] (CLIA# [id number]). PATIENT NAME: CUPPLES,PEÑA PATHOLOGY DATE OF : 64 REPORT #: [id number] PHYSICIAN: JANNETH WALKER PCP: NILO GORDILLO NP REPORT IS CONFIDENTIAL AND NOT TO BE RELEASED WITHOUT AUTHORIZATION [address] [place], [place] [address] Signed Professional interpretation [facility] - [address] [place] [address] (CLIA#: [id number]). Diagnostician: Edgard Foy MD Pathologist Electronically Signed 03/14/2023 Copies: ~ PATIENT NAME: PEÑA CALDWELL PATHOLOGY DATE OF : 64 REPORT #: [id number] PHYSICIAN: JANNETH PATHOLOGY PCP: NILO GORDILLO RN MDS REPORT IS CONFIDENTIAL AND NOT TO BE RELEASED WITHOUT AUTHORIZATION
== END 2023-03-09 09:25 | disposition home or self-care (01) ==
LOC: ED 11:23 → MS 11:25 → ED 14:36 → MS 03-09 09:25
PROVIDERS: Internal Medicine; ADMIT Surgery; ATTEND Surgery
PROC: 0FT44ZZ Resection of Gallbladder, Percutaneous Endoscopic Approach (ICD-10-PCS; principal; 2023-03-07)
PROC: 0DNW0ZZ Release Peritoneum, Open Approach (ICD-10-PCS; 2023-03-07)
DX: K80.12 Calculus of gallbladder with acute and chronic cholecystitis without obstruction (principal); K66.0 Peritoneal adhesions (postprocedural) (postinfection); Z87.891 Personal history of nicotine dependence
CPT/HCPCS: 00790; 36415; 74300; 76705; 80053; 81003; 83690; 85025; 87502; 88304; 93005; 93010; 96361; 96372; 96375; 96376; C9803; G0378; J0131; J0330; J0690; J0694; J1100; J1644; J1885; J2270; J2405; J2704; J3010; J3490; J7030; J7121; Q9967; U0002

== ENCOUNTER 2025-03-04 10:56 | Emergency (ER) | payer OTHER ==
[~2025-03-04] VITALS: Ht 162.6 cm; Wt 70.0 kg
[~2025-03-04 10:56] MED LIST changes: +ALEVE220 M1 PO; +COLACE100 MG PO; +MILK OF MA400 MG/5 M PO; +MOTRIN IB200 MG PO; +TYLENOL EXTRA500 MG PO
[2025-03-04 11:41] LABS: BASOPHILS 0.8 % (0.1-1.2); EOSINOPHILS 1.7 % (0.7-5.8); LYMPHOCYTES 30.6 % (19.3-51.7); MCH 31.0 PG (25.6-32.2); MCHC 32.9 g/dL (32.2-35.5); MCV 94.2 fL (79.4-94.8); MONOCYTES 4.7 % (4.7-12.5); NEUTROPHILS 62.0 % (34.0-71.1); RBC 4.62 M/uL (3.93-5.22)
[2025-03-04] MEDS ORDERED: ZITHROMAX250 MG PO (11:47)
[2025-03-04 11:48] LABS: CORONAVIRUS COVID-19 AG NEGATIVE (NEGATIVE)
[2025-03-04] MEDS ORDERED: BENZONATATE100 MG PO (11:49)
[2025-03-04 11:57] LABS: ALT (SGPT) 26.0 U/L (14-59); AST (SGOT) 29.0 U/L (15-37); GLOMERULAR FILTRATION RATE,EST 94.0 mL/min (>60); PROTEIN, TOTAL 8.8 g/dL (6.4-8.2); UREA NITROGEN 11.0 mg/dL (7-18)
[2025-03-04 12:08] VITALS: BP 113/66
== END 2025-03-04 12:09 | disposition home or self-care (01) ==
LOC: ED 10:56
PROVIDERS: Emergency Medicine
DX: J18.9 Pneumonia, unspecified organism (principal); Z87.891 Personal history of nicotine dependence; Z88.5 Allergy status to narcotic agent; Z88.0 Allergy status to penicillin; Z88.6 Allergy status to analgesic agent; Z91.018 Allergy to other foods
CPT/HCPCS: 36415; 71045; 80053; 85025; 99283-25